=== PATIENT | male | born 1955 | race Caucasian/White ===

== ENCOUNTER 2018-06-19 14:20 | Inpatient (IN) | payer OTHER ==
[~2018-06-19] VITALS: Ht 175.3 cm; Wt 71.7 kg
[2018-06-19] MEDS ORDERED: SODIUM CHLORIDE 0.9% 500 ML IV ONE (14:45)
[2018-06-19 15:46] LABS: CHLORIDE 105 mEq/L (98-107)
[2018-06-19 15:51] LABS: ETHANOL BLOOD < 10 mg/dL
[2018-06-19 15:52] LABS: BASOPHILS % 0.2 % (0.0-2.0); EOSINOPHILS % 0.7 % (0.0-5.0); HEMATOCRIT. 30.2 % (42.0-52.0); HEMOGLOBIN. 10.1 g/dL (14.0-18.0); LYMPHOCYTES % 10.1 % (20.0-50.0); MEAN CORPUSCULAR HEMOGLOBIN 28.3 pg (28.0-32.0); MEAN CORPUSCULAR VOLUME 84.5 fL (80.0-94.0); MEAN PLATELET VOLUME 9.6 fl (7.4-10.4); MONOCYTES % 2.3 % (2.0-8.0); NEUTROPHILS % 86.7 % (40.0-76.0); PLATELET 68 x1000/uL (130-400); RED BLOOD CELL COUNT 3.57 mill/uL (4.7-6.1); RED CELL DISTRIBUTION WIDTH 17.7 % (11.6-14.6)
[2018-06-19 15:54] LABS: AMMONIA 109 uMol/L (<32)
[2018-06-19 15:58] LABS: D-DIMER 10.47 mg/L FEU (<0.50); INR 1.4; PROTHROMBIN TIME 14.1 sec (9.1-11.1)
[2018-06-19 16:14] LABS: HEPATITIS B SURFACE ANTIGEN NEGATIVE
[2018-06-19] MEDS ORDERED: IOHEXOL-350 100 ML BOTTLE ONE (16:17)
[2018-06-19 16:43] LABS: HEPATITIS B CORE AB IGM NEGATIVE
[2018-06-19 16:44] LABS: HEPATITIS A AB IGM NEGATIVE (NEGATIVE)
[2018-06-19 17:36] LABS: CLARITY URINE CLEAR (CLEAR); COLOR URINE YELLOW (YELLOW); KETONES URINE NEGATIVE (NEGATIVE); LEUKOCYTE ESTERASE URINE NEGATIVE (NEGATIVE); NITRITE URINE POSITIVE (NEGATIVE); OCCULT BLOOD URINE NEGATIVE (NEGATIVE); PH URINE 6.5 (4.5-8.0); PROTEIN URINE NEGATIVE (NEGATIVE); SPECIFIC GRAVITY URINE 1.057 (1.005-1.030)
[2018-06-19 18:00] LABS: *AMPHETAMINES SCREEN URINE NEGATIVE (NEGATIVE); *BARBITURATES SCREEN URINE NEGATIVE (NEGATIVE); *BENZODIAZEPINES SCREEN URINE NEGATIVE (NEGATIVE); *COCAINE SCREEN URINE NEGATIVE (NEGATIVE); CANNABINOID URINE SCREEN NEGATIVE (NEGATIVE); METHADONE URINE SCREEN NEGATIVE (NEGATIVE); OPIATES URINE SCREEN NEGATIVE (NEGATIVE); PHENCYCLIDINE URINE SCREEN NEGATIVE (NEGATIVE)
[2018-06-19] MEDS ORDERED: SODIUM CHLORIDE 0.9% 1,000 ML IV ONE (20:15)
[2018-06-19] MEDS ORDERED: CLONIDINE 0.1MG TABLET PO PRN (20:30)
[2018-06-19] MEDS ORDERED: HYDROCODONE/ACETAMINOPHEN 10/325MG TABLET PO PRN (20:30)
[2018-06-19] MEDS ORDERED: ACETAMINOPHEN 325MG TABLET PO PRN (20:30)
[2018-06-19] MEDS ORDERED: IPRATROPIUM/ALBUTEROL 0.5-3(2.5)MG/3ML NEB INH PRN (20:30)
[2018-06-19] MEDS ORDERED: ONDANSETRON HCL 4MG/2ML INJ IV PRN (20:30)
[2018-06-19] MEDS ORDERED: LORAZEPAM 2MG/ML CPJ IV PRN (20:30)
[2018-06-19] MEDS ORDERED: MAGNESIUM/ALUMINUM HYDROXIDE/SIMETHICONE 30ML UDC PO PRN (20:30)
[2018-06-19] MEDS ORDERED: MORPHINE SULFATE 4 MG/ML CPJ (NOT FOR IM USE) IV PRN (20:30)
[2018-06-19] MEDS ORDERED: DOCUSATE SODIUM 100MG CAPSULE PO PRN (20:30)
[2018-06-19 22:00] VITALS: BP 92/47
[2018-06-19] MEDS ORDERED: NA PHOS,M-B/NA PHOS,DI-BA ENEMA 118ML PR PRN (22:00)
[2018-06-19] MEDS ORDERED: SPIR100T5 PO (22:27)
[2018-06-19] MEDS ORDERED: FURO20TA4 PO (22:27)
[2018-06-19] MEDS ORDERED: LACT10SO30 PO (22:27)
[2018-06-19] MEDS ORDERED: PANT40TA4 PO (22:27)
[2018-06-19] MEDS ORDERED: PROP40TA7 PO (22:27)
[2018-06-19] MEDS ORDERED: HYDR-2412 PO (22:27)
[2018-06-19 23:10] VITALS: BP 92/47
[2018-06-19 23:17] VITALS: BP 92/47
[2018-06-19] MEDS: GUAIFENESIN 200MG/10ML SUGAR FREE UDC PO PRN (23:39)
[2018-06-19] MEDS ORDERED: LEVOFLOXACIN 500MG PREMIX 100 ML IV NR (23:59)
[2018-06-20] VITALS (66 sets, daily range): BP systolic 73–129; BP diastolic 39–79
[2018-06-20] MEDS ORDERED: SODIUM CHLORIDE 0.9% 500 ML IV ONE (04:30)
[2018-06-20 07:56] LABS: BASOPHILS % 0.1 % (0.0-2.0); HEMATOCRIT. 27.7 % (42.0-52.0); HEMOGLOBIN. 9.4 g/dL (14.0-18.0); LYMPHOCYTES % 11.1 % (20.0-50.0); MEAN CORPUSCULAR HEMOGLOBIN 28.8 pg (28.0-32.0); MEAN CORPUSCULAR VOLUME 84.5 fL (80.0-94.0); MEAN PLATELET VOLUME 10.5 fl (7.4-10.4); MONOCYTES % 3.1 % (2.0-8.0); NEUTROPHILS % 85.7 % (40.0-76.0); PLATELET 51 x1000/uL (130-400); RED BLOOD CELL COUNT 3.28 mill/uL (4.7-6.1); RED CELL DISTRIBUTION WIDTH 17.7 % (11.6-14.6)
[2018-06-20 08:59] LABS: CHLORIDE 111 mEq/L (98-107)
[2018-06-20] MEDS ORDERED: ENOXAPARIN 40MG/0.4ML SYR SUBCUT SCH (09:00)
[2018-06-20 09:19] LABS: LDL CHOLESTEROL 38 mg/dL (5-100); T4 FREE 0.89 ng/dL (0.76-1.46)
[2018-06-20 09:21] LABS: HDL CHOLESTEROL 44 mg/dL (40-59)
[2018-06-20] MEDS: GUAIFENESIN 200MG/10ML SUGAR FREE UDC PO PRN (10:23)
[2018-06-20] MEDS ORDERED: SODIUM CHLORIDE 0.9% 500 ML IV SCH ×2 (12:00→13:00)
[2018-06-20] MEDS ORDERED: SODIUM CHLORIDE 0.9% 1,000 ML IV SCH (12:15)
[2018-06-20 13:12] LABS: BG BASE EXCESS -8.7 mmol/L (-2.0-2.0); BG CARBOXYHEMOGLOBIN 0.1 % (0.5-1.5); BG DEOXYHEMOGLOBIN 9.2 % (0.0-5.0); BG FRACTION INSPIRED OXYGEN 21; BG HCO3 ACT 15.6 mmol/L (22.0-26.0); BG METHEMOGLOBIN 0.2 % (0.0-1.5); BG OXYGEN SATURATION 90.8 % (92.0-98.5); BG OXYHEMOGLOBIN 90.5 % (94.0-97.0); BG PCO2 27.8 mmHg (35.0-45.0); BG PH 7.366 (7.350-7.450); BG PO2 65.3 mmHg (75.0-100.0); BG SAMPLE SITE RIGHT RADIAL; BG TOTAL HEMOGLOBIN 8.9 g/dL (12.0-18.0); BG VENT MODE ROOM AIR
[2018-06-20] MEDS: PHENYLEPHRINE 40 MG in DEXT 5% WATER 246 ML IV PRN ×2 (13:29→19:22)
[2018-06-20] MEDS ORDERED: CEFTRIAXONE 2 G PREMIX 50 ML IV SCH (15:00)
[2018-06-20] MEDS ORDERED: ALBUMIN HUMAN 25GM/500ML (5%) IV SCH (15:15)
[2018-06-20] MEDS: DEXT 5%/0.45% NACL 1000ML 1,000 ML IV SCH (16:49)
[2018-06-20] MEDS: AZITHROMYCIN 500 MG in DEXT 5% WATER 250 ML IV SCH (16:56)
[2018-06-20] MEDS ORDERED: SODIUM CHLORIDE 10% FOR INH 15ML VIAL NEB INH NR (17:00)
[2018-06-20] MEDS: CEFTRIAXONE 2 G in DEXTROSE 5% WATER 50 ML IV SCH (19:55)
[2018-06-20] MEDS ORDERED: LEVOFLOXACIN 500MG PREMIX 100 ML IV SCH (21:00)
[2018-06-21] VITALS (89 sets, daily range): BP systolic 80–120; BP diastolic 36–77
[2018-06-21] MEDS: PHENYLEPHRINE 40 MG in DEXT 5% WATER 246 ML IV PRN ×2 (02:54→11:54)
[2018-06-21] MEDS ORDERED: REGADENOSON 0.4 MG/5 ML IV ONE (08:16)
[2018-06-21] MEDS: DEXT 5%/0.45% NACL 1000ML 1,000 ML IV SCH (09:44)
[2018-06-21] MEDS: PANTOPRAZOLE SODIUM 40 MG/VIAL IV SCH (09:44)
[2018-06-21] MEDS: MIDODRINE HCL 5MG TABLET PO SCH ×3 (09:44→18:20)
[2018-06-21] MEDS: IPRATROPIUM/ALBUTEROL 0.5-3(2.5)MG/3ML NEB HHN SCH ×4 (12:45→23:50)
[2018-06-21 13:06] LABS: BASOPHILS % 0.3 % (0.0-2.0); EOSINOPHILS % 2.5 % (0.0-5.0); HEMATOCRIT. 31.6 % (42.0-52.0); HEMOGLOBIN. 10.5 g/dL (14.0-18.0); LYMPHOCYTES % 13.2 % (20.0-50.0); MEAN CORPUSCULAR VOLUME 84.4 fL (80.0-94.0); MEAN PLATELET VOLUME 9.5 fl (7.4-10.4); MONOCYTES % 7.1 % (2.0-8.0); NEUTROPHILS % 76.9 % (40.0-76.0); PLATELET 87 x1000/uL (130-400); RED BLOOD CELL COUNT 3.74 mill/uL (4.7-6.1); RED CELL DISTRIBUTION WIDTH 18.3 % (11.6-14.6)
[2018-06-21] MEDS ORDERED: ACETYLCYSTEINE 100MG/ML 10% VIAL 4ML INH SCH (14:00)
[2018-06-21 14:28] LABS: CREATINE KINASE MB FRACTION 1.7 ng/mL (0.5-3.6); T4 FREE 1.03 ng/dL (0.76-1.46)
[2018-06-21 15:16] LABS: CHLORIDE 110 mEq/L (98-107)
[2018-06-21] MEDS: ACETYLCYSTEINE 100MG/ML 10% VIAL 4ML INH SCH ×2 (16:05→23:51)
[2018-06-21] MEDS: AZITHROMYCIN 500 MG in DEXT 5% WATER 250 ML IV SCH (16:53)
[2018-06-21] MEDS: CEFTRIAXONE 2 G in DEXTROSE 5% WATER 50 ML IV SCH (16:54)
[2018-06-21] MEDS: GUAIFENESIN 600MG ER TABLET PO SCH (21:55)
[2018-06-22] VITALS (83 sets, daily range): BP systolic 74–126; BP diastolic 50–73
[2018-06-22] MEDS: IPRATROPIUM/ALBUTEROL 0.5-3(2.5)MG/3ML NEB HHN SCH ×5 (03:52→20:45)
[2018-06-22] MEDS: PHENYLEPHRINE 40 MG in DEXT 5% WATER 246 ML IV PRN ×2 (05:06→21:15)
[2018-06-22 06:23] LABS: CHLORIDE 107 mEq/L (98-107)
[2018-06-22 06:31] LABS: BASOPHILS % 0.2 % (0.0-2.0); EOSINOPHILS % 2.8 % (0.0-5.0); HEMATOCRIT. 30.6 % (42.0-52.0); HEMOGLOBIN. 10.3 g/dL (14.0-18.0); LYMPHOCYTES % 19.4 % (20.0-50.0); MEAN CORPUSCULAR HEMOGLOBIN 28.3 pg (28.0-32.0); MEAN CORPUSCULAR VOLUME 83.9 fL (80.0-94.0); MEAN PLATELET VOLUME 9.9 fl (7.4-10.4); MONOCYTES % 9.3 % (2.0-8.0); NEUTROPHILS % 68.3 % (40.0-76.0); PLATELET 79 x1000/uL (130-400); RED BLOOD CELL COUNT 3.64 mill/uL (4.7-6.1); RED CELL DISTRIBUTION WIDTH 18.2 % (11.6-14.6)
[2018-06-22 06:35] LABS: CREATINE KINASE 153 IU/L (39-308)
[2018-06-22 06:41] LABS: CREATINE KINASE MB FRACTION < 1.0 ng/mL (0.5-3.6)
[2018-06-22] MEDS: ACETYLCYSTEINE 100MG/ML 10% VIAL 4ML INH SCH ×3 (08:08→20:47)
[2018-06-22] MEDS: PANTOPRAZOLE SODIUM 40 MG/VIAL IV SCH (09:18)
[2018-06-22] MEDS: GUAIFENESIN 600MG ER TABLET PO SCH ×2 (09:18→21:10)
[2018-06-22] MEDS: MIDODRINE HCL 5MG TABLET PO SCH ×2 (09:18→13:00)
[2018-06-22] MEDS: CEFTRIAXONE 2 G in DEXTROSE 5% WATER 50 ML IV SCH (16:12)
[2018-06-22] MEDS: AZITHROMYCIN 500 MG in DEXT 5% WATER 250 ML IV SCH (16:12)
[2018-06-22] MEDS: MIDODRINE HCL 10 MG TABLET PO SCH (17:16)
[2018-06-23] VITALS (92 sets, daily range): BP systolic 47–137; BP diastolic 25–80
[2018-06-23] MEDS: IPRATROPIUM/ALBUTEROL 0.5-3(2.5)MG/3ML NEB HHN SCH ×6 (00:48→20:59)
[2018-06-23] MEDS: GUAIFENESIN 600MG ER TABLET PO SCH ×2 (09:14→21:58)
[2018-06-23] MEDS: PANTOPRAZOLE SODIUM 40 MG/VIAL IV SCH (09:14)
[2018-06-23] MEDS: MIDODRINE HCL 10 MG TABLET PO SCH ×3 (09:14→16:23)
[2018-06-23] MEDS: PHENYLEPHRINE 40 MG in DEXT 5% WATER 246 ML IV PRN (12:12)
[2018-06-23] MEDS: CEFTRIAXONE 2 G in DEXTROSE 5% WATER 50 ML IV SCH (16:23)
[2018-06-23] MEDS: AZITHROMYCIN 500 MG in DEXT 5% WATER 250 ML IV SCH (16:23)
[2018-06-23] MEDS: ACETYLCYSTEINE 100MG/ML 10% VIAL 4ML INH SCH (17:45)
[2018-06-24] VITALS (38 sets, daily range): BP systolic 76–123; BP diastolic 39–88
[2018-06-24] MEDS: ACETYLCYSTEINE 100MG/ML 10% VIAL 4ML INH SCH ×2 (00:54→08:59)
[2018-06-24] MEDS: IPRATROPIUM/ALBUTEROL 0.5-3(2.5)MG/3ML NEB HHN SCH ×6 (00:54→21:05)
[2018-06-24] MEDS: PANTOPRAZOLE SODIUM 40 MG/VIAL IV SCH (08:16)
[2018-06-24] MEDS: GUAIFENESIN 600MG ER TABLET PO SCH ×2 (08:19→20:49)
[2018-06-24] MEDS: MIDODRINE HCL 10 MG TABLET PO SCH ×3 (08:19→17:07)
[2018-06-24 13:42] LABS: HEMOGLOBIN. 9.8 g/dL (14.0-18.0); MEAN CORPUSCULAR HEMOGLOBIN 28.4 pg (28.0-32.0); MEAN CORPUSCULAR VOLUME 84.2 fL (80.0-94.0); PLATELET 70 x1000/uL (130-400); RED BLOOD CELL COUNT 3.45 mill/uL (4.7-6.1); RED CELL DISTRIBUTION WIDTH 18.2 % (11.6-14.6)
[2018-06-24 14:27] LABS: CHLORIDE 106 mEq/L (98-107)
[2018-06-24 14:30] LABS: PLATELET ESTIMATE DECREASED
[2018-06-24] MEDS: CEFTRIAXONE 2 G in DEXTROSE 5% WATER 50 ML IV SCH (16:13)
[2018-06-24] MEDS: AZITHROMYCIN 500 MG in DEXT 5% WATER 250 ML IV SCH (17:07)
[2018-06-25] MEDS: IPRATROPIUM/ALBUTEROL 0.5-3(2.5)MG/3ML NEB HHN SCH ×3 (00:59→08:40)
[2018-06-25 04:00] VITALS: BP 106/57
[2018-06-25 06:38] LABS: BASOPHILS % 0.4 % (0.0-2.0); EOSINOPHILS % 4.4 % (0.0-5.0); HEMATOCRIT. 25.9 % (42.0-52.0); LYMPHOCYTES % 22.2 % (20.0-50.0); MEAN CORPUSCULAR HEMOGLOBIN 29.2 pg (28.0-32.0); MEAN CORPUSCULAR VOLUME 83.6 fL (80.0-94.0); MEAN PLATELET VOLUME 9.3 fl (7.4-10.4); MONOCYTES % 14.4 % (2.0-8.0); NEUTROPHILS % 58.6 % (40.0-76.0); PLATELET 64 x1000/uL (130-400); RED BLOOD CELL COUNT 3.09 mill/uL (4.7-6.1); RED CELL DISTRIBUTION WIDTH 17.7 % (11.6-14.6)
[2018-06-25 06:54] LABS: CHLORIDE 106 mEq/L (98-107)
[2018-06-25 08:00] VITALS: BP 97/62
[2018-06-25] MEDS: PANTOPRAZOLE SODIUM 40 MG/VIAL IV SCH (09:44)
[2018-06-25] MEDS: GUAIFENESIN 600MG ER TABLET PO SCH (09:44)
[2018-06-25] MEDS: MIDODRINE HCL 10 MG TABLET PO SCH (09:44)
[2018-06-25 11:35] VITALS: BP 97/62
== END 2018-06-25 12:10 | disposition home or self-care (01) | DRG 871 ==
LOC: ER 14:20 → EDBEDREQSVC 18:57 → EDBEDREQTM 18:57 → EDBEDREQ 19:01 → 6WST 19:06 → ENRESERV 19:06 → MICUNO 06-20 13:25 → MICUSO 06-24 06:30 → 7WST 06-24 11:59
PROVIDERS: ADMIT Internal Medicine; ATTEND Internal Medicine
DX: A41.9 Sepsis, unspecified organism (principal); G93.41 Metabolic encephalopathy; J96.00 Acute respiratory failure, unspecified whether with hypoxia or hypercapnia; R65.21 Severe sepsis with septic shock; J69.0 Pneumonitis due to inhalation of food and vomit; E46 Unspecified protein-calorie malnutrition; D68.9 Coagulation defect, unspecified; E87.2 Acidosis; N39.0 Urinary tract infection, site not specified; D69.6 Thrombocytopenia, unspecified; B96.20 Unspecified Escherichia coli [E. coli] as the cause of diseases classified elsewhere; E87.5 Hyperkalemia; B95.2 Enterococcus as the cause of diseases classified elsewhere; I12.9 Hypertensive chronic kidney disease with stage 1 through stage 4 chronic kidney disease, or unspecified chronic kidney disease; D64.9 Anemia, unspecified; E86.0 Dehydration; K70.30 Alcoholic cirrhosis of liver without ascites; N18.9 Chronic kidney disease, unspecified; Z68.23 Body mass index [BMI] 23.0-23.9, adult; Z79.899 Other long term (current) drug therapy
CPT/HCPCS: 36415; 36600; 70450; 70551; 71045; 71275; 80048; 80053; 80061; 80076; 80305; 81003; 82140; 82375; 82550; 82553; 82805; 82962; 83036; 83605; 83735; 83880; 84145; 84439; 84443; 84484; 85025; 85379; 85610; 85651; 86705; 86709; 86803; 87040; 87077; 87086; 87186; 87340; 93005; 93306; 93970; 94640; 94667; 96360; 96361; 97116; 97162; 97164; 99285; C9113; G0482; J0456; J0696; J1956; J2370; J2785; J3490; J7030; J7040; J7050; J7060; J7131; J7608; J7620; P9041; Q9967

== ENCOUNTER 2019-05-06 22:45 | Emergency (ER) | payer OTHER ==
[~2019-05-06] VITALS: Ht 160 cm; Wt 71.0 kg
[~2019-05-06 22:45] MED LIST: FURO20TA4 PO; HYDR-459 PO; LACT10SO30 PO; PANT40TA4 PO; PROP40TA7 PO; SPIR100T5 PO
[2019-05-07] MEDS ORDERED: LIDOCAINE HCL 1% 20ML VIAL (Pyxis) INJ INJ STA (01:34)
[2019-05-07 01:36] LABS: BASOPHILS % 0.3 % (0.0-2.0); EOSINOPHILS % 2.8 % (0.0-5.0); HEMATOCRIT. 24.5 % (42.0-52.0); HEMOGLOBIN. 7.8 g/dL (14.0-18.0); LYMPHOCYTES % 25.3 % (20.0-50.0); MEAN CORPUSCULAR HEMOGLOBIN 23.8 pg (28.0-32.0); MEAN CORPUSCULAR VOLUME 75.4 fL (80.0-94.0); MEAN PLATELET VOLUME 8.3 fl (7.4-10.4); MONOCYTES % 9.5 % (2.0-8.0); NEUTROPHILS % 62.1 % (40.0-76.0); PLATELET 114 x1000/uL (130-400); RED BLOOD CELL COUNT 3.26 mill/uL (4.7-6.1); RED CELL DISTRIBUTION WIDTH 17.3 % (11.6-14.6)
[2019-05-07 01:40] LABS: CHLORIDE 102 mEq/L (98-107)
[2019-05-07 01:41] LABS: INR 1.3; PROTHROMBIN TIME 13.4 sec (9.6-11.0)
[2019-05-07] MEDS ORDERED: MORPHINE SULFATE 4 MG/ML CPJ (NOT FOR IM USE) IV ONE ×2 (01:45→08:45)
[2019-05-07] MEDS ORDERED: ONDANSETRON HCL 4MG/2ML INJ IV ONE (01:45)
[2019-05-07] MEDS ORDERED: LACTULOSE 20G/30ML UDC PO ONE (04:45)
[2019-05-07 06:09] LABS: CLARITY URINE CLEAR (CLEAR); COLOR URINE YELLOW (YELLOW); KETONES URINE TRACE (NEGATIVE); LEUKOCYTE ESTERASE URINE NEGATIVE (NEGATIVE); NITRITE URINE NEGATIVE (NEGATIVE); OCCULT BLOOD URINE NEGATIVE (NEGATIVE); PH URINE 7.5 (4.5-8.0); PROTEIN URINE NEGATIVE (NEGATIVE); SPECIFIC GRAVITY URINE 1.022 (1.005-1.030); UROBILINOGEN URINE 0.2 E.U./dL (0.2-1.0)
[2019-05-07 11:30] VITALS: BP 116/76
== END 2019-05-07 10:45 | disposition short-term general hospital (02) ==
LOC: ER 22:45
DX: K70.31 Alcoholic cirrhosis of liver with ascites (principal); D64.9 Anemia, unspecified; Z98.890 Other specified postprocedural states
CPT/HCPCS: 36415; 74176; 80053; 81003; 82140; 83690; 85025; 85610; 87070; 87075; 87205; 89050; 96374; 96375; 96376; 99285; J2270; J2405; J3490